=== PATIENT | female | born 1945 | race Caucasian/White ===

== ENCOUNTER 2017-01-04 14:01 | Emergency (ER) | payer MEDICARE, OTHER ==
[~2017-01-04] VITALS: Ht 165.1 cm; Wt 79.5 kg
[2017-01-04] MEDS ORDERED: AMLO5TAB2 (14:12)
[2017-01-04] MEDS ORDERED: COSO1SOL3 (14:12)
[2017-01-04] MEDS ORDERED: METO1TAB32 (14:12)
[2017-01-04] MEDS ORDERED: TRAV04OPD (14:12)
[2017-01-04] MEDS ORDERED: LIDOCAINE 1% MDV 20ML VIAL SC ONE (16:00)
--- NOTE | 2017-01-04 17:52 | REP ---
Right wrist series: Four views: History: Trauma. Findings: There is mild diffuse osteopenia. Four views of the right wrist show mild soft tissue swelling dorsally over the carpus. No fracture or subluxation is evident. There is a small bone island in the distal radius. Impression: No fracture seen. Signed by Rasta Curry MD 01/07/2017 06:47 P
--- NOTE | 2017-01-04 17:52 | REP ---
MAXILLOFACIAL CT WITHOUT CONTRAST: HISTORY: Trauma. The sinuses are clear. The osteomeatal units are patent. The middle and inferior nasal turbinates are partially paradoxical. There is mild deviation of the nasal septum to the left. A spur is present arising from the left side of the nasal septum. The spur abuts the left inferior nasal turbinate. The cribriform plate , medial villegas of the orbits and optic canals are intact. The carotid canals form a segment of the posterolateral villegas of the sphenoid sinus. The sphenoid sinus septum inserts into the left internal carotid canal wall. There is no fracture. Periapical lucency is present involving the incisor teeth of the maxilla. This represents periodontal disease. There is very minimal soft tissue thickening along the medial wall of the right maxillary sinus and nasal bone. IMPRESSION: There is no acute or chronic sinusitis. Signed by Neel Dunlap MD 01/04/2017 05:56 P
[2017-01-04 17:53] VITALS: BP 148/66
== END 2017-01-04 17:54 | disposition home or self-care (01) ==
LOC: M ED 14:01
DX: S01.511A Laceration without foreign body of lip, initial encounter (principal); S03.2XXA Dislocation of tooth, initial encounter; S02.5XXA Fracture of tooth (traumatic), initial encounter for closed fracture; S63.501A Unspecified sprain of right wrist, initial encounter; S63.502A Unspecified sprain of left wrist, initial encounter; W01.198A Fall on same level from slipping, tripping and stumbling with subsequent striking against other object, initial encounter; Y92.410 Unspecified street and highway as the place of occurrence of the external cause; Y93.01 Activity, walking, marching and hiking; Y99.8 Other external cause status; I10 Essential (primary) hypertension; H40.9 Unspecified glaucoma; Z79.899 Other long term (current) drug therapy; Z87.891 Personal history of nicotine dependence

== ENCOUNTER → 2018-01-21 | Outpatient (CLI) | payer MEDICARE, OTHER | LOC: M WHC 14:50 | DX: Z12.31 Encounter for screening mammogram for malignant neoplasm of breast (principal); Z78.0 Asymptomatic menopausal state | CPT/HCPCS: 77067 ==

== ENCOUNTER → 2020-01-11 | Outpatient (CLI) | payer MEDICARE, OTHER ==
[~2020-01-11] MED LIST: AMLO1TAB24; COSO1SOL3; METO1TAB32; TRAV04OPD
[2020-01-11 20:43] LABS: BASO # 0.1 10^3/uL (0.0-0.2); BASO % 0.9 % (0.0-1.0); EOS # 0.1 10^3/uL (0.0-0.5); EOS % 1.9 % (0.0-3.0); HEMATOCRIT 48.4 % (36.0-47.0); HEMOGLOBIN 15.1 g/dl (12.0-15.5); LYMPH % 26.7 % (24.0-44.0); MEAN CORPUSCULAR HEMOGLOBIN 29.2 pg (27.0-33.0); MEAN CORPUSCULAR HGB CONC 31.2 g/dl (32.0-36.5); MEAN CORPUSCULAR VOLUME 93.4 fl (80.0-96.0); MONO # 0.8 10^3/uL (0.0-0.8); MONO % 10.8 % (0.0-5.0); NEUTROPHILS # 4.5 10^3/uL (1.5-8.5); NEUTROPHILS % 59.4 % (36.0-66.0); PLATELET COUNT, AUTOMATED 215 10^3/uL (150-450); RED BLOOD COUNT 5.18 10^6/uL (4.00-5.40); WHITE BLOOD COUNT 7.5 10^3/uL (4.0-10.0)
[2020-01-11 20:56] LABS: ALBUMIN 4.1 GM/DL (3.2-5.2); ALT/SGPT 27 U/L (12-78); BILIRUBIN,TOTAL 0.5 MG/DL (0.2-1.0); BLOOD UREA NITROGEN 11 MG/DL (7-18); CALCIUM LEVEL 10.2 MG/DL (8.8-10.2); CARBON DIOXIDE LEVEL 31 MEQ/L (21-32); CHLORIDE LEVEL 108 MEQ/L (98-107); CREATININE FOR GFR 0.82 MG/DL (0.55-1.30); GLOMERULAR FILTRATION RATE > 60.0 (>39); GLUCOSE, FASTING 83 MG/DL (70-100); POTASSIUM SERUM 4.2 MEQ/L (3.5-5.1); RHEUMATOID FACTOR QUANT < 10.0 IU/ML (<15.0); SODIUM LEVEL 142 MEQ/L (136-145); TOTAL PROTEIN 7.7 GM/DL (6.4-8.2)
[2020-01-11 20:58] LABS: VITAMIN B12 LEVEL 610 PG/ML
[2020-01-11 20:59] LABS: FOLATE 17.9 NG/ML
[2020-01-11 21:10] LABS: HEMOGLOBIN A1c 5.7 %
[2020-01-11 21:43] LABS: ERYTHROCYTE SEDIMENTATION RATE 2 mm/hr (0-30)
[2020-01-12 11:14] LABS: ALBUMIN % 58.6 % (55.8-66.1)
[2020-01-12 11:15] LABS: ALBUMIN 4.51 GM/DL (3.29-5.55); ALPHA-1-GLOBULIN % 4.7 % (2.9-4.9); ALPHA-1-GLOBULINS 0.36 GM/DL (0.17-0.41); ALPHA-2-GLOBULINS 0.83 GM/DL (0.42-0.99); ALPHA-2-GLOBULINS % 10.8 % (7.1-11.8); BETA-1-GLOBULINS 0.45 GM/DL (0.28-0.60); BETA-1-GLOBULINS % 5.9 % (4.7-7.2); BETA-2-GLOBULINS % 6.5 % (3.2-6.5); GAMMA GLOBULIN % 13.5 % (11.1-18.8); GAMMA GLOBULINS 1.04 GM/DL (0.65-1.58)
== END ==
LOC: M WUC 15:30
PROVIDERS: ATTEND Psychiatry & Neurology Neurology
DX: G62.9 Polyneuropathy, unspecified (principal)

== ENCOUNTER → 2021-11-09 | Outpatient (CLI) | payer MEDICARE, OTHER | LOC: M WHC 13:55 | PROVIDERS: ATTEND Internal Medicine | DX: Z12.31 Encounter for screening mammogram for malignant neoplasm of breast (principal) ==